=== PATIENT | female | born 1975 | race Caucasian/White ===

== ENCOUNTER 2018-06-05 21:17 | Emergency (ER) | payer SELFPAY ==
[~2018-06-05] VITALS: Ht 170.2 cm; Wt 133.8 kg
--- OUTSIDE RECORDS SUMMARY | 2018-06-05 21:20 | XMS REPORT ---
Author Author [facility] Address Unknown Phone Unavailable Care Team Providers Care Makeup Sales Advisor Name Role Phone Unavailable Unavailable Payers Payer Name Policy Type Policy Number Effective Date Expiration Date Problems This patient has no known problems. Allergies, Adverse Reactions, Alerts Allergy Name Allergy Type Status Severity Reaction(s) Onset Date Inactive Date Treating Clinician Comments No Known Allergies DA Active U 2018-05-27 00:00:00 No Known Allergies DA Active U 2018-03-01 00:00:00 No Known Allergies DA Active U 2017-08-30 00:00:00 Medications This patient has no known medications. Encounters Start Date/Time End Date/Time Encounter Type Admission Type Attending [facility] Care Facility Care Department Encounter ID 2018-08-11 00:00:00 2018-08-11 00:00:00 Outpatient [facility] [id number] 2018-07-03 00:00:00 2018-07-03 00:00:00 Outpatient [facility] [id number] 2018-07-01 00:00:00 2018-07-01 00:00:00 Outpatient [facility] [id number] 2018-07-01 00:00:00 2018-07-01 00:00:00 Outpatient [facility] [id number] 2018-06-24 00:00:00 2018-06-24 00:00:00 Outpatient [facility] [id number] 2018-06-20 00:00:00 2018-06-20 00:00:00 Outpatient [facility] [id number] 2018-06-06 00:00:00 2018-06-06 00:00:00 Outpatient [facility] [id number] 2018-06-03 12:41:59 2018-06-03 12:41:59 Outpatient [facility] [id number] 2018-06-03 12:02:12 2018-06-03 12:02:12 Outpatient [facility] [id number] 2018-06-02 00:00:00 2018-06-02 00:00:00 Outpatient [facility] [id number] 2018-05-27 16:10:31 2018-05-27 16:10:31 Outpatient [facility] [id number] 2018-05-27 14:58:50 2018-05-27 14:58:50 Outpatient [facility] [id number] 2018-05-20 12:34:31 2018-05-20 12:34:31 Outpatient [facility] [id number] 2018-05-20 11:01:31 2018-05-20 11:01:31 Outpatient [facility] [id number] 2018-05-08 00:00:00 2018-05-08 00:00:00 Outpatient [facility] [id number] 2018-05-06 14:33:51 2018-05-06 14:33:51 Outpatient [facility] [id number] 2018-05-06 12:52:48 2018-05-06 12:52:48 Outpatient [facility] [id number] 2018-05-05 14:13:16 2018-05-05 14:13:16 Outpatient [facility] [id number] 2018-05-05 00:00:00 2018-05-05 00:00:00 Outpatient [facility] [id number] 2018-04-25 10:00:23 2018-04-25 10:00:23 Outpatient [facility] [id number] 2018-04-25 00:00:00 2018-04-25 00:00:00 Outpatient [facility] [id number] 2018-04-24 10:23:34 2018-04-24 10:23:34 Outpatient [facility] [id number] 2018-04-24 10:13:49 2018-04-24 10:13:49 Outpatient [facility] [id number] 2018-04-21 11:10:50 2018-04-21 11:10:50 Outpatient [facility] [id number] 2018-04-14 00:00:00 2018-04-14 00:00:00 Outpatient [facility] [id number] 2018-04-10 00:00:00 2018-04-10 00:00:00 Outpatient [facility] [id number] 2018-04-08 12:40:14 2018-04-08 12:40:14 Outpatient [facility] [id number] 2018-04-08 12:22:56 2018-04-08 12:22:56 Outpatient [facility] [id number] 2018-04-08 00:00:00 2018-04-08 00:00:00 Outpatient [facility] [id number] 2018-04-03 00:00:00 2018-04-03 00:00:00 Outpatient [facility] [id number] 2018-03-31 15:43:21 2018-03-31 15:43:21 Outpatient [facility] [id number] 2018-03-27 10:57:55 2018-03-27 10:57:55 Outpatient [facility] [id number] 2018-03-27 10:47:42 2018-03-27 10:47:42 Outpatient [facility] [id number] 2018-03-13 12:07:06 2018-03-13 12:07:06 Outpatient [facility] [id number] 2018-03-13 11:08:38 2018-03-13 11:08:38 Outpatient [facility] [id number] 2018-03-11 12:38:27 2018-03-11 12:38:27 Outpatient [facility] [id number] 2018-03-11 12:15:05 2018-03-11 12:15:05 Outpatient [facility] [id number] 2018-03-07 11:46:38 2018-03-07 11:46:38 Emergency [facility] [id number] 2018-03-07 08:28:53 2018-03-07 08:28:53 Emergency [facility] [id number] 2018-03-07 08:02:50 2018-03-07 08:02:50 Emergency [facility] [id number] 2018-02-28 00:00:00 2018-02-28 00:00:00 Outpatient [facility] [id number] 2018-02-21 14:56:20 2018-02-21 14:56:20 Outpatient [facility] [id number] 2018-02-13 13:17:48 2018-02-13 13:17:48 Outpatient [facility] [id number] 2018-02-12 00:00:00 2018-02-12 00:00:00 Outpatient [facility] [id number] 2018-02-11 12:20:18 2018-02-11 12:20:18 Outpatient [facility] [id number] 2018-02-11 11:48:18 2018-02-11 11:48:18 Outpatient [facility] [id number] 2018-02-11 00:00:00 2018-02-11 00:00:00 Outpatient [facility] [id number] 2018-01-14 12:18:45 2018-01-14 12:18:45 Outpatient [facility] [id number] 2018-01-14 11:36:36 2018-01-14 11:36:36 Outpatient [facility] [id number] 2018-01-14 00:00:00 2018-01-14 00:00:00 Outpatient [facility] [id number] 2018-01-10 12:55:47 2018-01-10 12:55:47 Outpatient [facility] [id number] 2018-01-06 00:00:00 2018-01-06 00:00:00 Outpatient [facility] [id number] 2018-01-03 00:00:00 2018-01-03 00:00:00 Outpatient [facility] [id number] 2018-01-02 13:05:19 2018-01-02 13:05:19 Outpatient [facility] [id number] 2018-01-01 00:00:00 2018-01-01 00:00:00 Outpatient [facility] [id number] 2018-01-01 00:00:00 2018-01-01 00:00:00 Outpatient [facility] [id number] 2017-12-31 15:53:51 2017-12-31 15:53:51 Outpatient [facility] [id number] 2017-12-27 00:00:00 2017-12-27 00:00:00 Outpatient [facility] [id number] 2017-12-17 12:23:04 2017-12-17 12:23:04 Outpatient [facility] [id number] 2017-12-17 11:17:10 2017-12-17 11:17:10 Outpatient [facility] [id number] 2017-11-19 12:24:38 2017-11-19 12:24:38 Outpatient [facility] [id number] 2017-11-19 11:56:15 2017-11-19 11:56:15 Outpatient [facility] [id number] 2017-11-14 00:00:00 2017-11-14 00:00:00 Outpatient [facility] [id number] 2017-11-08 00:00:00 2017-11-08 00:00:00 Outpatient [facility] [id number] 2017-11-05 13:18:20 2017-11-05 13:18:20 Outpatient [facility] [id number] 2017-11-05 13:11:55 2017-11-05 13:11:55 Outpatient [facility] [id number] 2017-10-27 00:00:00 2017-10-27 00:00:00 Outpatient [facility] [id number] 2017-10-24 00:00:00 2017-10-24 00:00:00 Outpatient [facility] [id number] 2017-10-22 13:38:49 2017-10-22 13:38:49 Outpatient [facility] [id number] 2017-10-22 13:23:49 2017-10-22 13:23:49 Outpatient [facility] [id number] 2017-10-22 00:00:00 2017-10-22 00:00:00 Outpatient [facility] [id number] 2017-10-15 12:32:58 2017-10-15 12:32:58 Outpatient [facility] [id number] 2017-10-15 12:16:53 2017-10-15 12:16:53 Outpatient [facility] [id number] 2017-10-14 09:30:27 2017-10-14 09:30:27 Outpatient [facility] [id number] 2017-10-14 09:23:34 2017-10-14 09:23:34 Outpatient [facility] [id number] 2017-10-14 08:24:12 2017-10-14 08:24:12 Outpatient [facility] [id number] 2017-10-14 00:00:00 2017-10-14 00:00:00 Outpatient [facility] [id number] 2017-10-08 12:25:12 2017-10-08 12:25:12 Outpatient [facility] [id number] 2017-10-08 11:59:55 2017-10-08 11:59:55 Outpatient [facility] [id number] 2017-10-07 00:00:00 2017-10-07 00:00:00 Outpatient [facility] [id number] 2017-10-07 00:00:00 2017-10-07 00:00:00 Outpatient [facility] [id number] 2017-09-26 00:00:00 2017-09-26 00:00:00 Outpatient [facility] [id number] 2017-09-24 13:11:15 2017-09-24 13:11:15 Outpatient [facility] [id number] 2017-09-24 11:56:36 2017-09-24 11:56:36 Outpatient [facility] [id number] 2017-09-24 00:00:00 2017-09-24 00:00:00 Outpatient [facility] [id number] 2017-09-24 00:00:00 2017-09-24 00:00:00 Outpatient [facility] [id number] 2017-09-17 12:37:49 2017-09-17 12:37:49 Outpatient [facility] [id number] 2017-08-29 00:00:00 2017-08-29 00:00:00 Outpatient [facility] [id number] 2017-08-20 09:22:06 2017-08-20 09:22:06 Outpatient [facility] [id number] 2017-08-20 00:00:00 2017-08-20 00:00:00 Outpatient [facility] [id number] 2017-08-14 16:14:00 2017-08-14 16:14:00 Emergency [facility] [id number] 2017-08-13 13:55:05 2017-08-13 13:55:05 Outpatient [facility] [id number] 2017-08-13 13:53:28 2017-08-13 13:53:28 Outpatient [facility] [id number] 2017-08-13 13:22:09 2017-08-13 13:22:09 Outpatient [facility] [id number] 2017-07-25 14:29:23 2017-07-25 14:29:23 Outpatient [facility] [id number] 2017-07-25 14:08:59 2017-07-25 14:08:59 Outpatient [facility] [id number] 2017-07-25 00:00:00 2017-07-25 00:00:00 Outpatient [facility] [id number] 2017-07-09 00:00:00 2017-07-09 00:00:00 Outpatient [facility] [id number] 2017-07-04 14:46:19 2017-07-04 14:46:19 Outpatient [facility] [id number] 2017-06-18 12:59:58 2017-06-18 12:59:58 Outpatient [facility] [id number] 2017-06-14 15:13:18 2017-06-14 15:13:18 Outpatient [facility] [id number] 2017-06-14 00:00:00 2017-06-14 00:00:00 Outpatient [facility] [id number] 2017-06-12 00:00:00 2017-06-12 00:00:00 Outpatient [facility] [id number] 2017-05-14 00:00:00 2017-05-14 00:00:00 Outpatient [facility] [id number] 2017-05-03 00:00:00 2017-05-03 00:00:00 Outpatient [facility] [id number] 2017-05-01 14:52:26 2017-05-01 14:52:26 Outpatient [facility] [id number] 2017-04-11 14:38:46 2017-04-11 14:38:46 Outpatient [facility] [id number] 2017-04-11 14:35:38 2017-04-11 14:35:38 Outpatient [facility] [id number] 2017-03-28 14:57:53 2017-03-28 14:57:53 Outpatient [facility] [id number] 2017-03-28 13:13:57 2017-03-28 13:13:57 Outpatient [facility] [id number] 2017-03-20 00:00:00 2017-03-20 00:00:00 Outpatient [facility] [id number] 2017-03-01 00:00:00 2017-03-01 00:00:00 Outpatient [facility] [id number] 2017-02-27 00:00:00 2017-02-27 00:00:00 Outpatient [facility] [id number] 2017-02-21 00:00:00 2017-02-21 00:00:00 Outpatient [facility] [id number] 2017-02-15 00:00:00 2017-02-15 00:00:00 Outpatient [facility] [id number] 2017-02-12 00:00:00 2017-02-12 00:00:00 Outpatient [facility] [id number] 2017-02-11 00:00:00 2017-02-11 00:00:00 Outpatient [facility] [id number] 2017-02-08 00:00:00 2017-02-08 00:00:00 Inpatient [facility] [id number] 2017-01-23 00:00:00 2017-01-23 00:00:00 Outpatient [facility] [id number] 2017-01-22 15:01:47 2017-01-22 15:01:47 Outpatient [facility] [id number] 2017-01-17 14:40:39 2017-01-17 14:40:39 Outpatient [facility] [id number] 2017-01-11 00:00:00 2017-01-11 00:00:00 Outpatient [facility] [id number] 2016-12-31 00:00:00 2016-12-31 00:00:00 Outpatient [facility] [id number] 2016-12-24 16:34:15 2016-12-24 16:34:15 Outpatient [facility] [id number] 2016-12-24 14:17:35 2016-12-24 14:17:35 Outpatient [facility] [id number] 2016-11-08 15:01:31 2016-11-08 15:01:31 Outpatient [facility] [id number] 2016-10-25 00:00:00 2016-10-25 00:00:00 Outpatient [facility] [id number] 2016-10-19 00:00:00 2016-10-19 00:00:00 Outpatient [facility] [id number] 2016-09-17 14:32:54 2016-09-17 14:32:54 Outpatient [facility] [id number] 2016-09-17 13:19:57 2016-09-17 13:19:57 Outpatient [facility] [id number] 2016-09-12 14:16:35 2016-09-12 14:16:35 Outpatient [facility] [id number] 2016-08-30 00:00:00 2016-08-30 00:00:00 Outpatient [facility] [id number] 2016-08-23 15:13:40 2016-08-23 15:13:40 Outpatient [facility] [id number] Results Test Description Test Time Test Comments Text Results Atomic Results Result Comments - CTA CHEST 2018-05-27 20:16:00 Name: SHANONMAYDA BRAXTON [facility] : 1975 Age/S: 42 / F [facility] Unit #: [id number] Loc: [place] [address] Phys: Timmy Anand DO Acct: [id number] Dis Date: Status: REG ER PHONE #: [phone] Exam Date: 05/27/20181958 FAX #: [phone] Reason: sob EXAMS: CPT CODE: [id number] CTA CHEST 19281 REASON FOR EXAM: sob EXAM ORDER DATE: 05/27/2018 6:42 PM Ordering Stephan: Timmy Anand DO PROCEDURE: - CTA CHEST FINDINGS: Axial images of the chest were obtained after IV contrast using PE protocol. Reconstructed sagittal and coronal images including 3D reconstructions of the chest were provided for interpretation. The pulmonary artery and its branches do not show any filling defects to suggest presence of acute pulmonary embolism. No evidence of adenopathy, pleural, pericardial effusion. Biventricular dilatation is seen. The visualized aorta appears normal. No evidence of lung nodules, consolidation, or pneumothorax. Right lung base linear atelectasis is seen. The visualized upper abdomen shows cholecystectomy clips. Degenerative changes are seen in the spine. IMPRESSION: No evidence of acute pulmonary embolism. No pleural effusion is seen. at 2016 Reported and signed by: Katrin Alanis M.D. CC: Timmy Anand DO Technologist:Diane Yates RT(R); LUZMARIA Allred CTDI: DLP: Trnscb Date/Time: 05/27/2018 (2015) [id number] Orig Print D/T: S: 05/27/2018 (2019) CTDI: DLP: PAGE 1 Signed Report HCG SERUM QUAL 2018-05-27 19:54:00 HCG SERUM QUAL (test code=HCGQL) NEGATIVE NEGATIVE This HCGQL test is NOT applicable for MALE patients.Check with nurse about probable order error.If Tumor Marker Test needed, nurse should order test "HCGTU"(Test #[id number]) - XR CHEST 1 [id number] 19:42:00 FAX: Timmy Anand DO [place]: B St: REG Name: MAYDA ARGUETA [facility] : [birth year] Age/S: 42/F [place] Unit #: [id number] Loc: [place] [address] Phys: Timmy Anand DO Acct: [id number] Dis Date: Status: REG ER PHONE #: [phone] Exam Date: 05/27/20181921 FAX #: [phone] Reason: CHEST PAIN EXAMS: CPT CODE: [id number] XR CHEST 1 V 04129 EXAM: Chest X-ray, 1 view; CLINICAL HISTORY: Chest pain, pleural effusion; FINDINGS: The lungs are clear, no infiltrates, no edema; no effusions; no pne umothorax; normal cardiomediastinal silhouette. IMPRESSION : No evidence of active cardiopulmonary disease. Mild dextroscoliosis of the thoracic spine. Electronically Sign ed by Stephan Garcia on 05/27/2018 at 194 Reported and signed by: Edinson Garcia M.D. CC: Timmy Anand DO Technologist: HAMIDA Chauhan Trnscrd Date/Time/By: 05/27/2018 (1941) : By: AnneliseGRW Orig Print D/T: S: (1944) PAGE 1 Signed Rep ort BASIC METABOLIC [id number] 19:17:00* Test Item Value Reference Range Comments SODIUM (test code=NA) 139 mmol/L 136-145 POTASSIUM (test code=K) 3.9 mmol/L 3.5-5.1 CHLORIDE (test code=CL) 106.0 mmol/L 98-107 CARBON DIOXIDE (test code=CO2) 30.0 mmol/L 21-32 ANION GAP (test code=GAP) 6.9 10-20 GLUCOSE (test code=GLU) 94 mg/dL 74-106 BLOOD UREA NITROGEN (test code=BUN) 19 mg/dL 7-18 GLOMERULAR FILTRATION RATE (test code=GFR) > 60 mL/min >=60 Estimated GFR by using Modified MDRD formula.Chronic kidney disease is defined as either kidney damageor GFR <60 mL/min/1.73 m2 for >3 months. CREATININE (test code=CREAT) 0.80 mg/dL 0.55-1.02 Note change in reference range due to change in reagent. BUN/CREATININE RATIO (test code=BUN/CREA) 23.8 10-20 CALCIUM (test code=CA) 8.8 mg/dL 8.5-10.1 [id number] 19:17:00* Test Item Value Reference Range Comments TROPONIN-I (test code=TROPI) <0.015 ng/mL 0-0.045 CBC W/O [id number] 19:11:00* Test Item Value Reference Range Comments WHITE BLOOD CELL (test code=WBC) 10.1 K/mm3 4.5-12.5 RED BLOOD CELL (test code=RBC) 4.69 mill/mm3 3.7-5.2 HEMOGLOBIN (test code=HGB) 14.0 gram/dL 11.5-15.5 HEMATOCRIT (test code=HCT) 44.5 % 36.0-46.0 MEAN CELL VOLUME (test code=MCV) 94.9 fL 80-98 MEAN CELL HGB (test code=MCH) 29.9 picogram 27.0-33.0 MEAN CELL HGB CONCETRATION (test code=MCHC) 31.5 gram/dL 33.0-36.0 RED CELL DISTRIBUTION WIDTH (test code=RDW) 11.9 % 11.6-16.2 PLATELET COUNT (test code=PLT) 258 K/mm3 150-450 MEAN PLATELET VOLUME (test code=MPV) 9.9 fL 6.7-11.0 BASIC METABOLIC [id number] 19:07:00* Test Item Value Reference Range Comments SODIUM (test code=NA) 139 mmol/L 136-145 POTASSIUM (test code=K) 3.9 mmol/L 3.5-5.1 CHLORIDE (test code=CL) 106.0 mmol/L 98-107 CARBON DIOXIDE (test code=CO2) mmol/L 21-32 ANION GAP (test code=GAP) 10-20 GLUCOSE (test code=GLU) mg/dL 74-106 BLOOD UREA NITROGEN (test code=BUN) mg/dL 7-18 GLOMERULAR FILTRATION RATE (test code=GFR) mL/min >=60 CREATININE (test code=CREAT) mg/dL 0.55-1.02 BUN/CREATININE RATIO (test code=BUN/CREA) 10-20 CALCIUM (test code=CA) mg/dL 8.5-10.1 [id number] 19:07:00* Test Item Value Reference Range Comments TROPONIN-I (test code=TROPI) ng/mL 0-0.045 CBC W/O [id number] 19:04:00* Test Item Value Reference Range Comments WHITE BLOOD CELL (test code=WBC) K/mm3 4.5-12.5 RED BLOOD CELL (test code=RBC) mill/mm3 3.7-5.2 HEMOGLOBIN (test code=HGB) 14.0 gram/dL 11.5-15.5 HEMATOCRIT (test code=HCT) 44.5 % 36.0-46.0 MEAN CELL VOLUME (test code=MCV) fL 80-98 MEAN CELL HGB (test code=MCH) picogram 27.0-33.0 MEAN CELL HGB CONCETRATION (test code=MCHC) gram/dL 33.0-36.0 RED CELL DISTRIBUTION WIDTH (test code=RDW) % 11.6-16.2 PLATELET COUNT (test code=PLT) K/mm3 150-450 MEAN PLATELET VOLUME (test code=MPV) fL 6.7-11.0
[2018-06-06] MEDS ORDERED: SODIUM CHLORIDE 0.9% 1000ML 1,000 ML IV STA ×2 (01:49→05:13)
--- NOTE | 2018-06-06 02:29 | Diagnostic Imaging Report ---
Examination: Single AP view of the chest. COMPARISON: No INDICATION: Cough DISCUSSION: Lines/tubes: None. Lungs: The lungs are well inflated and clear. No pneumonia or pulmonary edema. Pleura: No pleural effusion or pneumothorax. Heart and mediastinum: The heart and the mediastinum are unremarkable. Bones and soft tissues: No acute bony abnormalities. IMPRESSION: 1. No acute cardiopulmonary abnormalities. Signed by: Dr. Justin Magaña M.D. on 06/06/2018 2:25 AM
[2018-06-06 02:46] LABS: BASOPHILS % 0.3 % (0.0-1.0); EOSINOPHILS # (AUTO) 0.2 (0.0-0.4); EOSINOPHILS % 1.4 % (0.0-6.0); HEMATOCRIT 43.7 % (34.2-44.1); HEMOGLOBIN 14.6 g/dL (12.0-16.0); LYMPHOCYTES # (AUTO) 3.8 (1.0-3.2); LYMPHOCYTES % 31.3 % (18.0-39.1); MEAN CORPUSCULAR HEMOGLOBIN 31.4 pg (28-32); MEAN CORPUSCULAR HGB CONC 33.4 g/dL (31-35); MONOCYTES # (AUTO) 0.6 (0.2-0.8); MONOCYTES % 4.9 % (4.4-11.3); NEUTROPHILS # (AUTO) 7.5 (2.1-6.9); NEUTROPHILS % 61.7 % (38.7-80.0); PLATELET COUNT 284 x10e3/uL (140-360); RED BLOOD COUNT 4.65 x10e6/uL (3.6-5.1); RED CELL DISTRIBUTION WIDTH 12.2 % (11.7-14.4)
--- NOTE | 2018-06-06 02:53 | NUR ---
RT NOTIFIED FOR DUONEB TREATMENT.
[2018-06-06] MEDS ORDERED: ALBUTEROL/IPRATROPIUM 3 ML NEB NEB ONE (03:00)
[2018-06-06 03:15] LABS: CLARITY,URINE CLEAR (CLEAR); COLOR,URINE YELLOW (YELLOW)
[2018-06-06 03:16] LABS: BILIRUBIN,URINE NEGATIVE (NEGATIVE); KETONES,URINE NEGATIVE (NEGATIVE); LEUKOCYTE ESTERASE ,URINE NEGATIVE (NEGATIVE); NITRITE,URINE NEGATIVE (NEGATIVE); PROTEIN,URINE DIPSTICK TRACE (NEGATIVE); RBC,URINE 0-5 /HPF (0-5); URINE UROBILINOGEN 0.2 mg/dL (0.2 - 1); WBC,URINE (MAN) 0-5 /HPF (0-5)
[2018-06-06 03:17] LABS: BACTERIA,URINE MODERATE /HPF; EPITHELIAL CELLS,URINE FEW /LPF
[2018-06-06 03:19] LABS: ALANINE AMINOTRANSFERASE 19 IU/L (0-55); ALBUMIN 3.3 g/dL (3.5-5.0); ALBUMIN/GLOBULIN RATIO 0.9 (0.8-2.0); ALKALINE PHOSPHATASE 74 IU/L (40-150); ANION GAP 13.4 mmol/L (8-16); BLOOD UREA NITROGEN 14 mg/dL (7-26); BUN/CREATININE RATIO 21 (6-25); CARBON DIOXIDE 28 mmol/L (22-29); CHLORIDE 100 mmol/L (98-107); CREATINE KINASE 94 IU/L (29-168); CREATININE, SERUM 0.68 mg/dL (0.57-1.11); EST GLOMERULAR FILTRATION RATE > 60 ML/MIN (60-); GLUCOSE 90 mg/dL (74-118); POTASSIUM 4.4 mmol/L (3.5-5.1); SODIUM 137 mmol/L (136-145)
[2018-06-06 04:32] LABS: AMPHETAMINES SCREEN,URINE NEGATIVE (NEGATIVE); BENZODIAZEPINES SCREEN,URINE POSITIVE (NEGATIVE); PHENCYCLIDINE SCREEN,URINE NEGATIVE (NEGATIVE)
[2018-06-06] MEDS ORDERED: SODIUM CHLORIDE 0.9% 1000ML 1,000 ML ONE (05:18)
[2018-06-06 07:04] VITALS: BP 124/68
== END 2018-06-06 07:14 | disposition home or self-care (01) ==
LOC: ER 21:17
DX: R53.1 Weakness (principal); I95.9 Hypotension, unspecified; K52.9 Noninfective gastroenteritis and colitis, unspecified; R26.2 Difficulty in walking, not elsewhere classified; K21.9 Gastro-esophageal reflux disease without esophagitis; F32.9 Major depressive disorder, single episode, unspecified
CPT/HCPCS: 36415; 71045; 80053; 80307; 81001; 82550; 82553; 83605; 84443; 84484; 85025; 87040; 87086; 93005; 94640; 99284; J7030